=== PATIENT | male | born 1945 ===

== ENCOUNTER 2022-11-08 20:54 | Inpatient (IN) | payer MEDICARE ==
[~2022-11-08] VITALS: Ht 170.2 cm; Wt 107.6 kg
[2022-11-08] MEDS ORDERED: METO25ER PO (23:21)
[2022-11-08] MEDS ORDERED: LASIX40 MG PO (23:23)
--- NOTE | 2022-11-09 04:16 | NUR ---
PATIENT ARRIVED IN ROOM LATE LAST NIGHT. PATIENT ADMITTED FOR LIVER FAILURE. NPO AFTER MIDNIGHT. AOX4 WITH BRIEF EPISODES OF CONFUSION/IMPULSIVENESS. EASILY REDIRECTED. BLOOD PRESSURES HAVE BEEN SOFT, PER REPORT FROM NURSE IN [facility] THIS IS CONSISTENT WITH HIS VITALS THERE. FULL CODE. ON ROOM AIR. STANDBY ASSIST TO BATHROOM. PATIENT CALLS APPROPRIATELY AND FEELS URGE TO VOIDE BUT THUS FAR HAS PRODUCED VERY LITTLE URINE. ORDER FOR BLADDER SCAN 3X PER SHIFT. URINE SAMPLE NEEDS COLLECTED, THUS FAR UNABLE TO COLLECT ADEQUATE URINE FOR UA. PATIENT DENIES PAIN. CALL LIGHT LEFT WITHIN REACH.
[2022-11-09 05:15] LABS: Hematocrit 49.1 % (37.0-53.0); Hemoglobin 17.5 g/dL (13.5-17.5); Mean Corpuscular HGB 32.1 pg (26.0-34.0); Mean Corpuscular HGB Conc 35.6 g/dL (31.5-36.5); Mean Corpuscular Volume 90 fL (80-100); Platelet Count 59 K/mm3 (150-400); RDW Coefficient Variation 17.6 % (11.7-14.2); RDW Standard Deviation 51.9 fL (35.1-46.3); Red Blood Cell Count 5.46 M/mm3 (4.30-5.90)
[2022-11-09 06:26] LABS: Albumin, Blood 2.5 g/dL (3.4-5.0); Albumin/Globulin Ratio 0.7 (0.8-1.8); Bun/Creatinine Ratio 32.5 (12.0-20.0); Calcium, Blood 8.4 mg/dL (8.5-10.1); Creatinine, Blood 2.31 mg/dL (0.60-1.20); Globulin, Blood 3.8 g/dL (2.2-4.0); Magnesium, Blood 2.6 mg/dL (1.6-2.4); Potassium, Blood 4.4 mmol/L (3.5-5.5); Total Protein, Blood 6.3 g/dL (6.4-8.2)
[2022-11-09 06:46] LABS: BASOPHILS PERCENT MAN 0 % (0-2); EOSINOPHILS PERCENT MAN 0 % (0-6); LYMPHOCYTES ABSOLUTE MAN 0.33 K/mm3 (0.84-5.20); LYMPHOCYTES PERCENT MAN 2 % (21-46); MONOCYTES ABSOLUTE MAN 0.83 K/mm3 (0.16-1.47); MONOCYTES PERCENT MAN 5 % (4-13); NEUTROPHILS ABSOLUTE MAN 15.53 K/mm3 (1.96-9.15); SEG NEUTROPHILS PERCENT MAN 93 % (41-73); TOTAL CELLS COUNTED 100
[2022-11-09 07:22] LABS: International Normalized Ratio 1.8; Prothrombin Time Results 18.2 Sec (9.7-11.5)
--- NOTE | 2022-11-09 17:01 | NUR ---
PT ARRIVAL TO ICU.../SHIFT SUMMARY. PT ARRIVED TO THE ICU AT 1530. HE IS A&Ox4. THE PT'S SKIN AND SCLERA IS JUANDICED. THE PT WAS BROUGHT TO THE ICU FOR HYPOTENSION. UPON ARRIVAL THE PT'S BP IS SOFT BUT STABLE WITH MAPS >65. HE HAS 4+ EDEMA NOTED TO HIS BLE AND HIPS/ABD. THE PT'S LLE HAS A UNBROKEN BLISTER, AND A SMALL OPEN ULERATED AREA PICUTRES IN THE CHART. HE IS IN AFIB IN THE 70'S-100'S WHICH HE STATES IS CHRONIC. THE HANDS AND FEET ARE CYANOTIC AND COOL TO THE TOUCH, RADIAL AND PEDAL PULSES ARE VERY FAINT, CAP REFIL IS >3 SECONDS. L/S CLEAR T/O ON RA WITH O2 SATS >90%. RR IN THE 20S'. BT PRESENT AND HYPOACTIVE, ABD IS LARGE, SOFT AND TENDER TO PALPATION IN THE UPPER QUADRANT. ONCE THE PT WAS IN THE ROOM A POWER GLIDE WAS PLACED AND LABS WERE DRAWN. PLAN PER DR. ARELLANO IS FOR THE PT TO HAVE AN ECHO AND BE NPO AFTER MIDNIGHT INCASE THE PT NEEDS A DIALYSIS CATH PLACEMENT OR EGD. WILL CONTINUE TO MONITOR UNTIL REPORT IS GIVEN TO ONCOMING RN.
[2022-11-09 17:08] LABS: Base Excess Venous -9.5 mmol/L; Bicarbonate Venous 16.9 mmol/L (24.0-30.0); PCO2 Venous 40.4 mmHg (38-42); PO2 Venous 42.2 mmHg (38-42); pH Blood Venous 7.25 (7.34-7.37)
[2022-11-09 17:09] LABS: Hematocrit 43.8 % (37.0-53.0); Hemoglobin 15.7 g/dL (13.5-17.5); Mean Corpuscular HGB 32.1 pg (26.0-34.0); Mean Corpuscular HGB Conc 35.8 g/dL (31.5-36.5); Mean Corpuscular Volume 90 fL (80-100); NRBC ABSOLUTE 0.02 K/mm3 (0.00-0.02); NRBC Auto 0.1 /100 WBC (0.0-0.2); Platelet Count 56 K/mm3 (150-400); RDW Standard Deviation 52.4 fL (35.1-46.3); Red Blood Cell Count 4.89 M/mm3 (4.30-5.90); White Blood Cell Count 18.27 K/mm3 (4.00-11.30)
[2022-11-09 17:22] LABS: International Normalized Ratio 1.92; Prothrombin Time Results 19.3 Sec (9.7-11.5)
[2022-11-09 17:26] LABS: Albumin, Blood 3.5 g/dL (3.4-5.0); Albumin/Globulin Ratio 1.1 (0.8-1.8); Bilirubin, Total 9.3 mg/dL (0.1-1.0); Bun/Creatinine Ratio 29.2 (12.0-20.0); Calcium, Blood 8.3 mg/dL (8.5-10.1); Creatinine, Blood 2.77 mg/dL (0.60-1.20); Globulin, Blood 3.2 g/dL (2.2-4.0); Mean Platelet Volume 13.9 fL (9.1-12.4); Total Protein, Blood 6.7 g/dL (6.4-8.2)
[2022-11-09 17:56] LABS: BASOPHILS PERCENT MAN 0 % (0-2); EOSINOPHILS ABSOLUTE MAN 0.18 K/mm3 (0.00-0.68); EOSINOPHILS PERCENT MAN 1 % (0-6); LYMPHOCYTES ABSOLUTE MAN 0.54 K/mm3 (0.84-5.20); LYMPHOCYTES PERCENT MAN 3 % (21-46); MONOCYTES ABSOLUTE MAN 2.37 K/mm3 (0.16-1.47); MONOCYTES PERCENT MAN 13 % (4-13); NEUTROPHILS ABSOLUTE MAN 15.16 K/mm3 (1.96-9.15); SEG NEUTROPHILS PERCENT MAN 83 % (41-73); TOTAL CELLS COUNTED 100
--- NOTE | 2022-11-09 19:00 | NUR ---
ASSUMED CARE ASSUMED CARE OF PATIENT AT 1900. PATIENT IS LYING IN BED AWAKE AND ALERT, STATES HE IS HARD OF HEARING. NS TKO INF. LACTIC ACID REDRAW OBTAINED DURING REPORT AND SENT TO LAB. ATTENDS IN PLACE. SMALL OPEN ULCER TO RIGHT ALTERAL SANDRA JUST ABOVE THE ANKLE WITH LARGE BLOOD FILLED BLISTER NEXT TO IT. NO DRAINAGE FROM ULCER. BORDERED FOAM APPLIED TO WOUND. BEDSIDE REPORT COMPLETED WITH SENTHIL ROD.
[2022-11-10 03:49] LABS: Hematocrit 43.2 % (37.0-53.0); Hemoglobin 15.5 g/dL (13.5-17.5); Mean Corpuscular HGB 31.7 pg (26.0-34.0); Mean Corpuscular HGB Conc 35.9 g/dL (31.5-36.5); Mean Corpuscular Volume 88 fL (80-100); NRBC ABSOLUTE 0.02 K/mm3 (0.00-0.02); NRBC Auto 0.1 /100 WBC (0.0-0.2); Platelet Count 54 K/mm3 (150-400); RDW Coefficient Variation 16.7 % (11.7-14.2); RDW Standard Deviation 50.4 fL (35.1-46.3); Red Blood Cell Count 4.89 M/mm3 (4.30-5.90); White Blood Cell Count 20.12 K/mm3 (4.00-11.30)
[2022-11-10 04:10] LABS: Base Excess Venous -9.8 mmol/L; Bicarbonate Venous 17.4 mmol/L (24.0-30.0); pH Blood Venous 7.28 (7.34-7.37)
[2022-11-10 04:26] LABS: Albumin, Blood 2.9 g/dL (3.4-5.0); Albumin/Globulin Ratio 0.9 (0.8-1.8); Bilirubin, Total 8.7 mg/dL (0.1-1.0); Bun/Creatinine Ratio 28.4 (12.0-20.0); Calcium, Blood 7.7 mg/dL (8.5-10.1); Creatinine, Blood 3.1 mg/dL (0.60-1.20); Globulin, Blood 3.1 g/dL (2.2-4.0)
--- NOTE | 2022-11-10 05:19 | NUR ---
SHIFT SUMMARY PATIENT BECAME INCREASINGLY CONFUSED AND AGITATED THROUGHOUT SHIFT. CALL MADE TO SON AND PATIENT CALMED AFTER SPEAKING WITH HIM. MEDICATED FOR PAIN X 1. SLEPT OFF AND ON TOTAL OF 4-5 HOURS. FREQUENTLY ATTEMPTED TO EXIT THE BED WITHOUT ASSISTANCE DESPITE CALL LIGHT IN REACH AND FREQUENT REORIENTATION. NOW SPEAKING IN WORD SALAD. UNABLE TO SAY WHERE HE IS, THEN REFUSES TO ANSWER REMAINING ORIENTATION QUESTIONS. MOVES ALL EXTREMITIES X 4, ALTHOUGH BLE WEAK WITH SEVERE EDEMA. LUNG SOUNDS REMAINED CLEAR AND NO SUPPLEMENTAL O2 REQUIREMENTS. SPO2 HIGH 90'S ON ROOM AIR. NO BM OR URINE OUTPUT THIS SHIFT. DIET ORDER CHANGED FROM NPO TO CLEAR LIQUID. CRITICAL LABS OF: LACTIC ACID 42 @ 1951 AND [facility] PH 7.28 @ 04:14. NO NEW ORDERS FOR EITHER RESULT. NS TKO STILL INF. CALLED WITH UPDATES ON NEURO STATUS. AMMONIA LEVEL CHECKED WITH NO ELEVATION.
[2022-11-10 06:39] LABS: BAND PERCENT MAN 2 % (0-8); BASOPHILS PERCENT MAN 0 % (0-2); EOSINOPHILS PERCENT MAN 0 % (0-6); LYMPHOCYTES % ATYPICAL MANUAL 1 % (0-0); LYMPHOCYTES PERCENT MAN 3 % (21-46); MONOCYTES PERCENT MAN 6 % (4-13); SEG NEUTROPHILS PERCENT MAN 88 % (41-73); TOTAL CELLS COUNTED 100
--- NOTE | 2022-11-10 07:34 | NUR ---
AM NOTE.... ASSUMED CARE OF PT AT 0700 THE PT IS A&O TO SELF ONLY AT THIS TIME, THIS IS A CHANGE FROM YESTERDAY WHEN THIS PT ARRIVED IN THE ICU. HE IS ONLY ABLE TO STATE HIS NAME AND , WHEN ASKED WHERE HE IS AT HE STATES "[facility]." AND WHEN ASKED WHO THE PRESIDENT IS HIS WORDS ARE GARBLED. HE IS IN AFIB IN THE 90'S BP IS SOFT WITH SBPs IN THE 80'S-90'S MAPS ARE >60. ANASARCA IS PRESENT 4+ PITTING IN THE BLE. L/S CLEAR AND DIM T/O ON RA WITH O2 SATS >90%. RR IS IN THE 20'S. BT PRESENT BUT VERY HYPOACTIVE, ABD IS SOFT AND TENDER TO PALPATION IN THE RUQ. THE PT IS ANURIC. DR. TAFOYA ASSESSED THE PT IV IPAD THIS AM, PLAN IS FOR DIALYSIS CATH PLACEMENT TODAY. WILL CONTINUE TO MONITOR.
--- NOTE | 2022-11-10 18:00 | NUR ---
SHIFT SUMMARY.... NO ACUTE NEGATIVE CHANGES NOTED THIS SHIFT. THE PT CONTINUES TO HAVE CONFUSION AND IS VERY LETHARGIC. BP CONTINUES TO BE SOFT BUT MAPS >65. HE HAS NOT MADE ANY URINE THE PAST 2 DAYS. BLADDER SCAN WAS DONE Q6HRS AND SHOWED <30MLS. THE PT HAS NOT HAD A BM THIS SHIFT. DIALYSIS CATH WAS PLACED IN THE PT'S RIGHT IJ BY DR. STOUT AND PLANS FOR DIALYSIS TOMORROW AM. THE PT WAS GIVEN A BED BATH AND LINEN CHANGE THIS SHIFT WELL. CALL LIGHT IN REACH WILL CONTINUE TO MONITOR UNTIL REPORT IS GIVEN TO ONCOMING RN.
--- NOTE | 2022-11-10 18:01 | NUR ---
CASE CONFERENCE: Spoke to pt's son Cheko at bedside today. Son states throughout pt's previous stays, there was never any talk of liver or kidney issues in the past. Cheko reports he will be the primary decision maker, as he is close with all his sisters Jessica, Sulma, and Alina, and they are all talking to each other behind the scenes and have agreed to follow Cheko's lead. Cheko states they all "know how bad this might be", but are remaining hopeful. Will update Cheko again tomorrow.
--- NOTE | 2022-11-10 19:00 | NUR ---
ASSUMED CARE OF PT, BEDSIDE REPORT RECEIVED. PT IS NOTED RESTING QUIETLY RECLINING IN BED, GTTS NOTED ARE NS AT TKO WITH ZOSYN INFUSING AT 4 HOUR RATE. SATS MAINTAINING ON ROOM AIR, NO VISIBLE INCREASED WORK OF BREATHING, RESP EVEN AND REGULAR. AFIB NOTED ON MONITOR, RATE CONTROLLED, PRESSURES SOFT BUT MAINTAINING MAP OF THIS TIME. PT ROUSES EASILY TO VERBAL STIMULI, STATES THAT HE DOES NOT KNOW WHERE HE IS, WHEN ASKED FOR TYPE OF FACILITY HE IS IN HE STATES THAT HE DOESN'T KNOW, HE IS ORIENTED TO FAMILY AND SELF OF THIS TIME, PER REPORT HE IS INTERMITTENTLY ORIENTED TO HOSPITALIZATION AND SITUATION.
[2022-11-11 03:45] LABS: Bicarbonate Venous 15.9 mmol/L (24.0-30.0); PCO2 Venous 35.5 mmHg (38-42); PO2 Venous 82.9 mmHg (38-42)
[2022-11-11 03:46] LABS: pH Blood Venous 7.24 (7.34-7.37)
[2022-11-11 03:52] LABS: BASOPHILS ABSOLUTE AUTO 0.05 K/mm3 (0.00-0.23); BASOPHILS PERCENT AUTO 0 % (0-2); EOSINOPHILS ABSOLUTE AUTO 0.02 K/mm3 (0.00-0.68); EOSINOPHILS PERCENT AUTO 0 % (0-6); Hematocrit 41.2 % (37.0-53.0); Hemoglobin 14.7 g/dL (13.5-17.5); IMMATURE GRAN ABSOLUTE AUTO 0.25 K/mm3 (0.00-0.10); IMMATURE GRAN PERCENT AUTO 1 % (0-1); LYMPHOCYTES ABSOLUTE AUTO 0.58 K/mm3 (0.84-5.20); LYMPHOCYTES PERCENT AUTO 3 % (21-46); MONOCYTES ABSOLUTE AUTO 2.34 K/mm3 (0.16-1.47); MONOCYTES PERCENT AUTO 12 % (4-13); Mean Corpuscular HGB Conc 35.7 g/dL (31.5-36.5); Mean Corpuscular Volume 90 fL (80-100); NEUTROPHILS ABSOLUTE AUTO 16.98 K/mm3 (1.96-9.15); NEUTROPHILS PERCENT AUTO 84 % (41-73); NRBC ABSOLUTE 0.02 K/mm3 (0.00-0.02); NRBC Auto 0.1 /100 WBC (0.0-0.2); RDW Coefficient Variation 17.2 % (11.7-14.2); RDW Standard Deviation 51.9 fL (35.1-46.3); Red Blood Cell Count 4.59 M/mm3 (4.30-5.90); White Blood Cell Count 20.22 K/mm3 (4.00-11.30)
[2022-11-11 04:12] LABS: Platelet Count 41 K/mm3 (150-400)
[2022-11-11 06:43] LABS: Albumin, Blood 3.4 g/dL (3.4-5.0); Albumin/Globulin Ratio 1.3 (0.8-1.8); Bilirubin, Total 9.6 mg/dL (0.1-1.0); Bun/Creatinine Ratio 26.3 (12.0-20.0); Calcium, Blood 7.2 mg/dL (8.5-10.1); Creatinine, Blood 4.14 mg/dL (0.60-1.20); Globulin, Blood 2.7 g/dL (2.2-4.0); Potassium, Blood 5.5 mmol/L (3.5-5.5); Total Protein, Blood 6.1 g/dL (6.4-8.2)
--- NOTE | 2022-11-11 09:41 | NUR ---
AM NOTE... ASSUMED CARE OF PT AT 0700. THE PT IS A&Ox3 WITH SOME SEARCHING OF WORDS BUT OVER ALL GREATLY IMPROVED. HE IS IN AFIB W/PVCs IN THE 80'S-90'S BP IS SOFT BUT STABLE WITH MAPS >65. 4+ EDEMA NOTED TO HIS BLE AND 3+ TO ABD/HIPS. HE IS ON RA WITH O2 SATS >90% L/S A LITTLE COARSE IN THE UPPER/MID LOBES AND DIM IN THE LOWER LOBES, RR IN THE 20'S. BT PRESENT AND HYPERACTIVE, ABD IS SOFT AND TENDER TO PALPATION IN THE RUQ. THE PT HAD A LARGE BM THAT WAS PASTEY LIGHT BROWN/JAMA WITH BLACK AREAS NOTED. THE PT WAS UNABLE TO TAKE HIS PO MEDICATIONS THIS AM D/T THE PT STATING HE DID NOT FEEL LIKE HE COULD SWALLOW ANYTHING. THE PT REPORTS NECK CANCER WITH RADIATION "A FEW YEARS AGO." AND HE STATES HE HAS BEEN HAVING A HARD TIME WITH "CHOKING" AT HOME. ST EVAL ORDERD BY DR. STOUT PT IS TO HAVE DIALYSIS THIS AM. WILL CONTINUE TO MONITOR.
[2022-11-11 12:09] LABS: HBSAG SCREEN Negative (Negative); HCV AB 0.2 (0.0-0.9); HEP A AB, IGM Negative (Negative); HEP B CORE AB, TOT Negative (Negative)
[2022-11-11 14:03] LABS: Source, Urine Clean Catch
[2022-11-11 14:16] LABS: Appearance, Urine Turbid (Clear); Blood, Urine 1+ (Neg); Color, Urine Brown (P-Yellow); Glucose Qualitative, Urine Neg (Neg); Ketones, Urine 1+ (Neg); Leukocyte Esterase, Urine 1+ (Neg); Nitrite, Urine Pos (Neg); Protein, Urine 3+ (Neg); Specific Gravity, Urine 1.025 (1.003-1.022); Urobilinogen, Urine 2+ (Normal)
[2022-11-11 14:25] LABS: Bilirubin, Urine 2+ (Neg)
[2022-11-11 14:26] LABS: Bacteria Many /hpf; Squamous Epithelial Cells Few /hpf (Few)
[2022-11-11 14:27] LABS: Granular Casts 0-2 /lpf (0); Hyaline Casts 0-2 /lpf (0-2); Transitional Epithelial Cells Rare /hpf (0-Rare)
--- NOTE | 2022-11-11 17:52 | NUR ---
SHIFT SUMMARY.... NO ACUTE NEGATIVE CHANGES NOTED THIS SHIFT. THE PT HAD DIALYSIS IN THE ROOM WITH 2L REMOVED AND HE TOLERATED IT WELL. NO HYPOTENSION OR ECTOPY NOTED DURING DIALYSIS. THE PT WORKED WITH PT/OT/ST AND WAS PLACED ON A PUREE DIET WITH THIN LIQUIDS. PT/OT WORKED WITH THE PT AND HE WAS ABLE TO TRANSFER FROM [facility] BED TO THE CHAIR WITH A FWW AND GAIT BELT. THE PT STARTED HAVING BLACK STOOLS THIS SHIFT. THE PROVIDER IS AWARE. CALL LIGHT IN REACH WILL CONTINUE TO MONITOR UNTIL REPORT IS GIVEN TO ON COMING RN.
--- NOTE | 2022-11-11 19:15 | NUR ---
ASSUMED CARE OF PT, BEDSIDE REPORT RECEIVED. PT'S SON AT BEDSIDE VISITING, THEY DENY NEEDS AT THIS TIME, WILL REVIEW NEW ORDERS AND CHART NOTES.
[2022-11-12 05:13] LABS: Albumin, Blood 2.7 g/dL (3.4-5.0); Anion Gap 15 mmol/L (6-16); Blood Urea Nitrogen 85 mg/dL (8-24); Bun/Creatinine Ratio 23.8 (12.0-20.0); CO2, Blood 20 mmol/L (21-32); Chloride, Blood 105 mmol/L (98-108); Creatinine, Blood 3.57 mg/dL (0.60-1.20); Glomerular Filtration Rate 17 (60-); Glucose, Blood 87 mg/dL (70-99); Phosphorus, Blood 6.6 mg/dL (2.5-4.9); Potassium, Blood 4.6 mmol/L (3.5-5.5); Sodium, Blood 140 mmol/L (136-145)
[2022-11-12 07:09] LABS: ACTIN (SMOOTH MUSCLE) ANTIBODY 14 Units (0-19)
--- NOTE | 2022-11-12 07:27 | NUR ---
PT RESTS QUIETLY THROUGHOUT NOC, UP TO BSC WITH 2 PERSON ASSIST USING GAIT BELT AND FWW, PT TOLERATED WELL. TOLERATES TURNS EVERY 2 HOURS, DOES PREFER TO BE POSITIONED TO HIS LEFT SIDE OVER RIGHT HOWEVER BRUISE/BLISTER DEVELOPMENT WAS NOTED THIS SHIFT, SEE PHOTO. MEPILEX DRESSINGS PLACED, PT TOLERATED WELL. TUBE FEEDS STARTED AT 2009 AND STOPPED AT 0400 PER ORDERS, PT TOLERATED WELL. HAS MAINTAINED ORIENTATION THROUGHOUT NOC. NO ACUTE CHANGES.
[2022-11-12 08:28] LABS: Hematocrit 40.1 % (37.0-53.0); Hemoglobin 14.7 g/dL (13.5-17.5); Mean Corpuscular HGB 32.4 pg (26.0-34.0); Mean Corpuscular HGB Conc 36.7 g/dL (31.5-36.5); Mean Corpuscular Volume 88 fL (80-100); NRBC ABSOLUTE 0.05 K/mm3 (0.00-0.02); NRBC Auto 0.3 /100 WBC (0.0-0.2); RDW Coefficient Variation 17.1 % (11.7-14.2); RDW Standard Deviation 50.7 fL (35.1-46.3); Red Blood Cell Count 4.54 M/mm3 (4.30-5.90)
--- NOTE | 2022-11-12 08:50 | NUR ---
ASSUMED CARE / DIALYSIS: REPORT RECEIVED FROM VEDA Dang RN. ASSUMED CARE OF THIS PT AT APPROX 0700 ON ASSESSMENT, THE PT IS AWAKE, A&O x4 BUT FORGETFUL AT TIMES & HAVING DIFFICULTY FINDING THE RIGHT WORDS WHEN EXPRESSING HIS NEEDS. HIS SON IS AT BEDSIDE THIS AM & IS SUPPORTIVE IN CARE, HELPING W/ COMMUNICATION PRN. LS DIM IN BASES, PT ON RA W/ O2 SATS > 92%. MONITOR SHOWS AFIB W/ HR 90-100s, BP STABLE W/ MIDODRINE GIVEN PER EMAR. DOBHOFF IN PLACE, AM MEDS GIVEN ORDERED. TUBE FEEDS ON HOLD SINCE 0400 R/T PENDING EGD. PT STS WANTING A SODA BUT IS REMINDED THAT HE WILL ONLY BE ALLOWED TO HAVE WATER/ ICE CHIPS UNTIL 1200 AT WHICH TIME HE WILL BE NPO FOR EGD. HE BECOMES SLIGHTLY FRUSTRATED W/ THIS BUT IS OVERALL COOPERATIVE. PT GENERALLY ANURIC R/T HD. SKIN OVERALL FRAGILE W/ NUMEROUS AREAS OF ECCHYMOSIS & BLISTERING. SEE PHOTO DOCUMENTATION. Q2H REPOSITIONING TO MAINTAIN SKIN INTEGRITY. PT OUT OF ROOM TO DIALYSIS AT 0845 VIA BED BY THIS RN & MING Duffy, PCT. WILL CONTINUE TO MONITOR & UPDATE NEEDED.
[2022-11-12 08:51] LABS: Platelet Count 29 K/mm3 (150-400)
[2022-11-12 09:10] LABS: MITOCHONDRIAL (M2) ANTIBODY <20.0 Units (0.0-20.0)
--- NOTE | 2022-11-12 17:40 | NUR ---
Theraputic visit with son will update plan after diagnostics.
--- NOTE | 2022-11-12 19:35 | NUR ---
SHIFT SUMMARY: NO ACUTE CHANGES SINCE PRIOR UPDATES. PLAN NOW TO COMPLETE EGD TOMORROW. CUSTOM GRINDER RN AWARE TO BEGIN TUBE FEEDS ORDERED & THEN STOP AT 0400 AGAIN FOR EGD PLANNED TOMORROW AFTERNOON. LS DIM IN BASES, PT ON RA W/ O2 SATS > 92%. MONITOR SHOWS AFIB W/ PVCs, HR 80-90s, BP STABLE. MIDODRINE PER EMAR. NO URINARY VOID R/T HD. ONE MEDIUM BLACK INCONTINENT BM. SKIN OVERALL FRAGILE, Q2H REPOSITIONING TO MAINTAIN SKIN INTEGRITY. REPORT GIVEN TO CALLI Cueva RN TO ASSUME CARE.
--- NOTE | 2022-11-13 05:33 | NUR ---
SHIFT SUMMARY PATIENT SLEPT MOST THE NIGHT, SON IN TO VISIT. ORIENTED X4, SOME CONFUSION AND TROUBLE WITH WORDS. 02 SATS >94% ON RA. HR A.FIB 90s. BP WITH MAP >65, SYSTOLICS 80s TO 90s OVERNIGHT. DOBHOFF IN PLACE. TUBE FEED STOPPED AT 0400 THIS AM FOR EGD. PATIENT HAD MULTIPLE LIQUID BROWN/BLACK STOOLS. PATIENT REPOSITIONED Q2 HOURS.
[2022-11-13 08:38] LABS: Hemoglobin 15.5 g/dL (13.5-17.5); Mean Corpuscular Volume 89 fL (80-100); NRBC ABSOLUTE 0.06 K/mm3 (0.00-0.02); NRBC Auto 0.3 /100 WBC (0.0-0.2); RDW Coefficient Variation 17.7 % (11.7-14.2); RDW Standard Deviation 52.2 fL (35.1-46.3); Red Blood Cell Count 4.85 M/mm3 (4.30-5.90); White Blood Cell Count 19.51 K/mm3 (4.00-11.30)
[2022-11-13 08:41] LABS: Platelet Count 20 K/mm3 (150-400)
[2022-11-13 08:48] LABS: Albumin, Blood 2.4 g/dL (3.4-5.0); Albumin/Globulin Ratio 0.8 (0.8-1.8); Bilirubin, Total 12.8 mg/dL (0.1-1.0); Bun/Creatinine Ratio 19.7 (12.0-20.0); Calcium, Blood 8.7 mg/dL (8.5-10.1); Creatinine, Blood 3.14 mg/dL (0.60-1.20); Globulin, Blood 2.9 g/dL (2.2-4.0); Potassium, Blood 4.2 mmol/L (3.5-5.5); Total Protein, Blood 5.3 g/dL (6.4-8.2)
--- NOTE | 2022-11-13 15:51 | NUR ---
11/13/22 1551 Gonsalo Anderson PT HERE FOR EGD PER DR. THAKKAR WITH ANESTHESIA PER DR. SALAS. 4 % LIDO SPRAYED TO BACK OF PT'S THROAT PRIOR TO PROCEDURE PER DR. SALAS. 4 MG IVP ZOFRAN PER DR. CELESTE. TIME OUT PREFORMED THEN DR. THAKKAR REALIZE D PT HAS STABLE H&H AND HAS A DOBHOFF AND DOES NOT WANT TO REMOVE D/T INCREASE CHANCE OF BLEEDING AND LOW PLT COUNT. CASE ABORTED
[2022-11-13 19:06] LABS: ANTIMYELOPEROXIDASE (MPO) ABS <0.2 units (0.0-0.9); ANTIPROTEINASE 3 (PR-3) ABS <0.2 units (0.0-0.9); ATYPICAL PANCA <1:20 titer (Neg:<1:20); CYTOPLASMIC (C-ANCA) <1:20 titer (Neg:<1:20); PERINUCLEAR (P-ANCA) <1:20 titer (Neg:<1:20)
[2022-11-14 03:42] LABS: Hematocrit 42.5 % (37.0-53.0); Hemoglobin 15.4 g/dL (13.5-17.5); Mean Corpuscular HGB 32.1 pg (26.0-34.0); Mean Corpuscular HGB Conc 36.2 g/dL (31.5-36.5); Mean Corpuscular Volume 89 fL (80-100); NRBC ABSOLUTE 0.08 K/mm3 (0.00-0.02); NRBC Auto 0.4 /100 WBC (0.0-0.2); RDW Standard Deviation 52.2 fL (35.1-46.3); White Blood Cell Count 20.07 K/mm3 (4.00-11.30)
[2022-11-14 04:22] LABS: Albumin, Blood 2.8 g/dL (3.4-5.0); Anion Gap 12 mmol/L (6-16); Blood Urea Nitrogen 53 mg/dL (8-24); Bun/Creatinine Ratio 17.9 (12.0-20.0); CO2, Blood 24 mmol/L (21-32); Chloride, Blood 103 mmol/L (98-108); Creatinine, Blood 2.96 mg/dL (0.60-1.20); Glomerular Filtration Rate 21 (60-); Glucose, Blood 71 mg/dL (70-99); Phosphorus, Blood 4.8 mg/dL (2.5-4.9); Potassium, Blood 4.3 mmol/L (3.5-5.5); Sodium, Blood 139 mmol/L (136-145)
[2022-11-14 04:43] LABS: Platelet Count 14 K/mm3 (150-400)
--- NOTE | 2022-11-14 04:52 | NUR ---
SHIFT SUMMARY: PT REMAINS ALERT AND ORIENTED X3, SLOW TO RESPOND AT TIMES. ABLE TO FOLLOW COMMANDS AND MAKE NEEDS KNOWN. BP SOFT, MAP >65, HR AFIB 90'S, AFEBRILE, SATURATIONS >92% ON ROOM AIR. RESPIRATIONS EVEN AND UNLABORED, COUGHING UP THICK YELLOW SPUTUM. TUBE FEEDING RESTARTED BEGINNING OF SHIFT @50ML/HR, TURNED OFF AT 0300 FOR POSSIBLE EGD THIS AFTERNOON, PT CURRENTLY NPO. +3 EDEMA NOTED IN BLE. INC OF BOTH URINE AND BOWEL, ATTENDS IN PLACE. PT REPOS Q2 TO MAINTAIN SKIN INTEGRITY, SON AT BEDSIDE THROUGHOUT THE NIGHT, UPDATED ON PT CARE WITH PERMISSION. BED IN LOW, CALL LIGHT IN REACH, WILL REPORT TO ONCOMING RN.
[2022-11-14 12:57] LABS: Platelet Count 42 K/mm3 (150-400)
--- NOTE | 2022-11-14 13:33 | NUR ---
History, Chart, Medications and Allergies reviewed before start of procedure. Patient confirms NPO status and agrees with scheduled surgery. Lungs clear T/O to Auscultation.
--- NOTE | 2022-11-14 17:03 | NUR ---
CARE ASSUMPTION POST RETURN FROM DAY SURG. PATIENT BACK TO PCU AT 1600. NOT ABLE TO COMPLETE EGD AT THIS TIME DUE TO AFIB RVR. PATIENT BACK IN ROOM, GOAL TO CONTROL HR AND POSSIBLY GO BACK TO DAY SURG FOR EGD. ORDERS FOR IV DIG. PO MIDODRINE GIVEN VIA BERTHA MACHUCA BY DR. THAKKAR. REMAINS NPO. BP SOFT WITH SBP 80-90'S. TELE SHOWING AFIB RVR WITH HR 120-150'S. SON VIRGEN UPDATED AND AT BEDSIDE. TURN AND CHANGED, DARK/BLACK LIQUID STOOL. BILATERAL OUTSIDE OF HIP BLISTERS, DRESSINGS CHANGED. REMAINS ON 2L NASAL CANNULA POST DAY SURG PREP SATING ABOVE 95%. CALL LIGHT IN REACH. WILL CONTINUE TO MONITOR.
--- NOTE | 2022-11-14 17:29 | NUR ---
11/14/22 1729 Gonsalo Anderson [address] GU
--- NOTE | 2022-11-14 18:13 | NUR ---
TAKEN TO DAY SURGERY AT THIS TIME.
--- NOTE | 2022-11-14 18:31 | NUR ---
11/14/22 183 Gonsalo Anderson [address]. DUPONT
--- NOTE | 2022-11-14 18:41 | NUR ---
POST EGD: DR. THAKKAR TO UNIT AND SPOKE WITH THIS RN. ORDERS TO ALLOW PATIENT TO DRINK ANY FLUIDS HE WOULD LIKE. NO SOLIDS AT THIS TIME, PUREE DIET DISCONTINUED. OKAY TO RESUME TUBE FEEDS. RN TO CALL DR. THAKKAR WHEN SON IS IN ROOM. WAITING FOR PATIENT TO ARRIVE FROM DAY SURGERY.
--- NOTE | 2022-11-14 19:45 | NUR ---
DR THAKKAR IN ROOM WITH SON AT BEDSIDE. DISCUSSED THE FINDINGS OF HIS EDG. PT INFORMED THAT HE HAS SEVERAL AREAS OF BLEEDING THROUGHOUT THAT IS UNTREATABLE. SON VERY BLUNTLY INFORMED HIS FATHER THAT "YOU ARE DIEING DAD". SON SAT AND EXPLAINED THE SITUATION. DR THAKKAR SAID HE IS ALLOWED ANYTHING HE WANTS TO EAT OR DRINK BUT DID INFORM THE SON THAT HE WILL NOT BE ABLE TO OBTAIN ENOUGH NUTRITION ORALLY THAT IF HE WANTS WE CAN PLACE THE DOBHOFF AND RESTART THE TUBE FEEDING TO HELP. PT AT THIS TIME DENIES HAVING THE DOBHOFF. DR. THAKKAR STATES THE HOSPTIALIST WILL HAVE A MEETING WITH THE FAMILY TO FURTHER DISCUSS PLAN AND POSSIBLE COMFORT/HOSPICE SERVICES. PT RESTING IN BED, GAVE WATER AND JELLO PER REQUEST. SON IS OFF MAKING PHONE CALLS. WILL MONITOR.
--- NOTE | 2022-11-14 22:40 | NUR ---
DAUGHTER AND NEICE ARE IN THE ROOM AND WILL BE STAYING WITH PATIENT TONIGHT. HER BROTHER INFORMED HER WHAT WAS GOING ON . DISCUSSED WITH HER WHAT DR. THAKKAR HAD DISCUSSED AND SOME OPTIONS. BRIEFLY DISCUSSED COMFORT/HOSPICE WITH HER AND SHE STATES SHE IS WILLING TO DO WHAT EVERY HER FATHER WANTS. JUST MEDICATED FOR PAIN. BLOOD PRESSURE IS STILL SOFT WITH MAP HANGING AT 60-65. HE ATE ONLY FEW BITES OF JELLOW AND HAD CHOCOLOTE MILK.
--- NOTE | 2022-11-15 06:30 | NUR ---
SHIFT SUMMARY: FAMILY WAS MADE AWARE OF THE SEVERITY OF THE PATIENTS CONDITION LAST NIGHT BY DR. THAKKAR. PT VERBALIZED UNDERSTANDING WELL THAT FURTHER TREATMENT WILL ONLY TIME NOT CURE. FAMILY PLANS TO DICUSS WITH HOSPITALIST PLAN GOING FORWARDS TODAY. HE DID DENY WANTING TO HAVE FEEDING TUBE BACK IN LAST NIGHT AND PERFERS TO EAT WAHT HE WANTS. ONLY ATE FEW BITES OF FOOD. EDEMA STILL SIGNFICANT ALL OVER, VERY PAINFUL TO REPOSITION. MEDICATED WITH FENTANYL TWICE. HYPOTENSIVE T/O NIGHT WITH MAP JUST ABOVE 60. UNABLE TO GIVE CARDIZEM LAST NIGHT, HR INCREASED UP TO 130 AT TIMES BUT NEVER SUSTAINED. NO URINE OUTPUT. DRESSINGS REMAINED CDI. WILL REPORT OFF.
--- NOTE | 2022-11-15 08:20 | NUR ---
AM NOTE... ASSUMED CARE OF PT AT 0700, THE PT IS A&Ox3, VERY LETHARGIC AND SLOW TO RESPOND. HE IS IN AFIB IN THE 100'S, BP IS SOFT WITH SBPs IN THE 80'S-90'S MAPS IN THE LOW 60'S. HE HAS 4+ ANASACRA FROM HIS BLE TO HIS TRUNK. L/S COARSE IN THE UPPER LOBES DIM IN THE LOWER. RR IS SHALLOW IN THE 20'S 2L NC WITH O2 SATS AT 90-93%. BT PRESENT AND VERY HYPOACTIVE, ABD IS SOFT AND TENDER TO PALPATION. THIS RN SPOKE WITH THE LOADER OPERATOR ABOUT THE PT'S LOWER BPs THIS AM, SHE STATED SHE WOULD SPEAK WITH DR. TAFOYA. WILL CONTINUE TO MONITOR.
[2022-11-15 09:02] LABS: Hematocrit 41.9 % (37.0-53.0); Mean Corpuscular HGB 32.1 pg (26.0-34.0); Mean Corpuscular HGB Conc 35.8 g/dL (31.5-36.5); Mean Corpuscular Volume 90 fL (80-100); NRBC ABSOLUTE 0.22 K/mm3 (0.00-0.02); NRBC Auto 0.9 /100 WBC (0.0-0.2); RDW Coefficient Variation 18.9 % (11.7-14.2); RDW Standard Deviation 53.2 fL (35.1-46.3); Red Blood Cell Count 4.67 M/mm3 (4.30-5.90); White Blood Cell Count 25.17 K/mm3 (4.00-11.30)
[2022-11-15 09:09] LABS: Platelet Count 29 K/mm3 (150-400)
[2022-11-15 09:18] LABS: International Normalized Ratio 2.42
--- NOTE | 2022-11-15 09:20 | NUR ---
PT UPDATE.... PALLIATIVE CARE RN AT THE BEDSIDE TO SPEAK WITH THE PT AND HIS SON ELISABETH. THE PT MADE THE STATEMENT "I'M JUST TIRED OF HURTING." THE DECISION WAS MADE THAT THE PT WANTED TO BE COMFORT CARE. PROVIDER NOTIFIED AND COMFORT CARE ORDERS WERE PLACED. WILL CONTINUE TO MONITOR.
--- NOTE | 2022-11-15 09:29 | NUR ---
Received call from Primary SENTHIL Browne reporting Pt and family may benefit from goals of care discussion. Dr Choi has had discussion regarding prognosis. Pt resting in bed and appears lethargic. Pt A&O and reporting pain in his leg. Son Cheko at bedside. Assessed Pt and son Cheko's understanding of prognosis. Pt and family appear to understand condition and prognosis. Engaged in therapeutic conversation regarding goals of care. Pt and son Cheko report goal is now to focus on comfort. Educated on comfort care philosophy. Pt and son in agreement with comfort care. Offered therapeutic listening and emotional support. Primary SENTHIL Browne at bedside during conversation. Spoke with Dr Nelson and discussed case. Dr Nelson is agreeable for comfort care. Placed comfort care order, comfort care order set, and D/C maintenance medications per V/O from Dr Nelson. Palliative Care will remain available for symptom management and supportive visits.
[2022-11-15 09:30] LABS: Albumin, Blood 2.3 g/dL (3.4-5.0); Anion Gap 13 mmol/L (6-16); Blood Urea Nitrogen 81 mg/dL (8-24); Bun/Creatinine Ratio 19.4 (12.0-20.0); CO2, Blood 21 mmol/L (21-32); Calcium, Blood 8.9 mg/dL (8.5-10.1); Chloride, Blood 106 mmol/L (98-108); Creatinine, Blood 4.17 mg/dL (0.60-1.20); Digoxin (Lanoxin) 1.56 ug/mL (0.80-2.00); Glomerular Filtration Rate 14 (60-); Glucose, Blood 52 mg/dL (70-99); Phosphorus, Blood 5.9 mg/dL (2.5-4.9); Potassium, Blood 5.3 mmol/L (3.5-5.5); Sodium, Blood 140 mmol/L (136-145)
--- NOTE | 2022-11-15 17:35 | NUR ---
SHIFT SUMMARY.... PT WAS MADE COMFORT CARE THIS AM. HE HAS BEEN MEDICATED PER EMAR WITH GOOD RESULTS. FAMILY HAS BEEN AT THE BEDSIDE ALL SHIFT. THE PT CONTINUES TO HAVE BLACK LIQUID STOOLS. WILL CONTINUE TO MONITOR UNTIL REPORT IS GIVEN TO ONCOMING RN.
--- NOTE | 2022-11-15 20:35 | NUR ---
ASSUMPTION OF CARE THIS RN ASSUMED CARE OF PT AT 1900. REPORT RECEIVED FROM SENTHIL ROD. PT LYING IN BED, EYES OPEN OCCASSIONALLY TO SOUND BUT NOT ANSWERING QUESTIONS. PT APPEARS SEVERELY JAUNDICED. FAMILY, GRANDDAUGHTER AT BEDSIDE. DAUGHTERS AND SON IN WAITING ROOM. PT APPEARS RESTLESS AND UNCOMFORTABLE, 15 MG OF ROXINOL ADMINISTERED PER EMAR. PT SEEMED TO HAVE RELIEF, RESTING AND MORE COMFORTABLE. REST OF FAMILY NOW AT BEDSIDE. RECTAL TUBE IN PLACE, PLACED BY DAYSHIFT; DRAINING DARK RED BLOOD. PT REPOSITIONED AND COMPLETE LINEN CHANGE JUST BEFORE SHIFT CHANGE PER DAYSHIFT RN AND PCT. THIS RN WILL CONTINUE TO PROVIDE COMFORT MEASURE TO PT AND FAMILY THROUGHOUT SHIFT.
--- NOTE | 2022-11-15 23:35 | NUR ---
UPDATE PT RESTING COMFORTABLY, NO AGITATION OR RESTLESS NOTED AT THIS TIME. PT MEDICATED W/ROXANOL X2 SINCE START OF THIS SHIFT D/T RESTLESS, AIRHUNGER AND OBVIOUS SIGNS OF DISCOMFORT. 15 MG OF ROXANOL ADMINISTERED X2. FAMILY LEFT EXCEPT SON AT BEDSIDE AND WILL STAY OVERNIGHT. RECTAL TUBE STILL IN PLACE; DRAINING DARK, RED BLOOD. PT STILL UNRESPONSIVE, DOES RESPOND OCCASSIONALLY TO PAIN STIMULI. HOWEVER NOT RESPONDING TO VERBAL STIMULI OR OPENING EYES.
--- NOTE | 2022-11-16 04:46 | NUR ---
SHIFT SUMMARY PT REMAINS UNRESPONSIVE AND NOT OPENING EYES TO STIMULI. PT REPOSITIONED Q2-Q4. PT MEDICATED 15 MG ROXANOL X3 PER EMAR. PT APPEARS COMFORTABLE AT THIS TIME. RECTAL TUBE IN PLACE; DRAINING DARK, RED BLOOD. 200 MLS OUT THIS SHIFT. SONVIRGEN AT BEDSIDE AND STAYED OVERNIGHT. COMFORT MEASURES PROVIDED FOR PT AND FAMILY THROUGHOUT SHIFT. WILL UPDATE ONCOMING RN
== END 2022-11-16 11:00 | DRG 441 ==
LOC: MEDS 20:54 → PCU 22:38 → ICUW 22:38 → PCU 11-13 16:57
PROVIDERS: Family Medicine; Internal Medicine; Specialist; Student in an Organized Health Care Education/Training Program; ADMIT Internal Medicine
PROC: 30233R1 Transfusion of Nonautologous Platelets into Peripheral Vein, Percutaneous Approach (ICD-10-PCS; principal; 2022-11-10)
PROC: 5A1D70Z Performance of Urinary Filtration, Intermittent, Less than 6 Hours Per Day (ICD-10-PCS; 2022-11-10)
PROC: 02HV33Z Insertion of Infusion Device into Superior Vena Cava, Percutaneous Approach (ICD-10-PCS; 2022-11-10)
PROC: 0DJ08ZZ Inspection of Upper Intestinal Tract, Via Natural or Artificial Opening Endoscopic (ICD-10-PCS; 2022-11-14)
DX: K76.7 Hepatorenal syndrome (principal); G92.8 Other toxic encephalopathy; K72.00 Acute and subacute hepatic failure without coma; I50.21 Acute systolic (congestive) heart failure; N17.0 Acute kidney failure with tubular necrosis; K25.4 Chronic or unspecified gastric ulcer with hemorrhage; N18.6 End stage renal disease; E87.1 Hypo-osmolality and hyponatremia; D68.59 Other primary thrombophilia; I48.20 Chronic atrial fibrillation, unspecified; E87.20 Acidosis, unspecified; E44.0 Moderate protein-calorie malnutrition; K76.6 Portal hypertension; D68.4 Acquired coagulation factor deficiency; R57.1 Hypovolemic shock; Z51.5 Encounter for palliative care; K31.89 Other diseases of stomach and duodenum; F10.20 Alcohol dependence, uncomplicated; D69.59 Other secondary thrombocytopenia; I27.20 Pulmonary hypertension, unspecified; K86.89 Other specified diseases of pancreas; K70.30 Alcoholic cirrhosis of liver without ascites; Z68.28 Body mass index [BMI] 28.0-28.9, adult; Z98.890 Other specified postprocedural states; Z79.899 Other long term (current) drug therapy
CPT/HCPCS: 36415; 36430; 36556; 71045; 76705; 80053; 80069; 80162; 81001; 82103; 82140; 82330; 82390; 82803; 82947; 83516; 83520; 83605; 83690; 83735; 83880; 84145; 85025; 85027; 85049; 85610; 86015; 86037; 86376; 86381; 86704; 86708; 86803; 86900; 86901; 87040; 87340; 92610; 93005; 93010; 93306; 97162; 97166; 97530; 97535; A9270; C1751; C1752; C9113; J0295; J1160; J2001; J2060; J2354; J2370; J2405; J2543; J2704; J3010; J7030; J7050; J7120; P9047; P9053